=== PATIENT | female | born 1995 | race Caucasian/White ===

== ENCOUNTER 2018-01-09 16:06 | Emergency (ER) | payer SELFPAY ==
--- NOTE | 2018-01-09 18:15 | ED Physician Documentation ---
PD HPI BACK INJURY - Stated complaint Stated Complaint: back pain - History obtained from History obtained from: Patient - History of Present Illness Location: Upper Type of injury: Fall (she slipped on wet grass while pushing object and landed squarely on back, with pain thoracic back between shoulder blades and some in lower neck. [place] "wind knocked out" for few minutes. Pain with breathing. Had some numbness in feet and left hand briefly when it was hurting most. No numbness after few minutes.) Where injury occurred: Work Timing - onset: Today Timing - details: Abrupt onset, Still present Quality: Pain, Spasm, Sharp (in mid thoracic area) Worsened by: Moving, Other (deep breathing) Associated symptoms: Numbness (transiently in feet and hand). No: Fever, Weakness Similar symptoms before: Has not had sx before Recently seen: Not recently seen Review of Systems Constitutional: denies: Fever Nose: denies: Rhinorrhea / runny nose, Congestion Throat: denies: Sore throat Respiratory: reports: Cough (has had some cough and congestion for the past few days prior to this.) GI: denies: Abdominal Pain, Nausea, Vomiting, Diarrhea Skin: denies: Rash, Abrasion (s), Laceration (s) Neurologic: denies: Altered mental status, Headache, Head injury PD PAST MEDICAL HISTORY - Past Medical History Cardiovascular: None Respiratory: None Neuro: None Musculoskeletal: None - Present Medications Home Medications: Ambulatory Orders Medication Instructions Recorded Confirmed HYDROcod/ACETAM 5/325 [[place] 5/325] 1 tab PO Q6H PRN #15 tablet 01/09/18 Methocarbamol [Robaxin] 500 mg PO Q6H PRN #25 tablet 01/09/18 Naproxen [Naprosyn] 500 mg PO BID PRN #20 tablet 01/09/18 - Allergies Allergies/Adverse Reactions: Allergies Allergy/AdvReac Type Severity Reaction Status Date / Time No Known Drug Allergies Allergy Verified 01/09/18 16:40 PD ED PE NORMAL - Vitals Vital signs reviewed: Yes - General General: Alert and oriented X 3, Well developed/nourished - HEENT HEENT: Atraumatic - Neck Neck: Supple, no meningeal sign, No adenopathy, Other (tender lower cervical area without deformity. Guarding ROM. Mid thoracic back is also tender to percussion. No skin injury. ) - Cardiac Cardiac: RRR, No murmur - Respiratory Respiratory: Clear bilaterally - Abdomen Abdomen: Soft, Non tender - Derm Derm: Normal color, Warm and dry - Extremities Extremities: No deformity, No tenderness to palpate, Normal ROM s pain - Neuro Neuro: Alert and oriented X 3, No motor deficit, No sensory deficit, Normal speech Results - Vitals Vitals: Vital Signs - 24 hr 01/09/18 01/09/18 01/09/18 16:34 18:18 18:40 Temperature 36.3 C L 36.8 C Heart Rate 98 96 90 Respiratory 16 12 22 Rate Blood Pressure 115/59 L 124/73 O2 Saturation 100 100 01/09/18 20:24 Temperature 37.2 C Heart Rate 88 Respiratory 14 Rate Blood Pressure 103/64 O2 Saturation 100 Oxygen O2 Source Room air - Rads (name of study) cervical spine CT Radiology: Prelim report reviewed (no fractures), EMP read contemporaneously thoracic spine CT Radiology: Prelim report reviewed (no fractures nor acute process) PD MEDICAL DECISION MAKING - ED course Complexity details: reviewed results (cervical and thoracic spine CTs are normal. She is feeling better with meds. ), re-evaluated patient (improved with meds given in ED. ), considered differential, d/w patient Departure - Departure Disposition: 01 Home, Self Care Clinical Impression: Accidental fall Qualifiers: Encounter type: initial encounter Qualified Code(s): W19.XXXA - Unspecified fall, initial encounter Back contusion Qualifiers: Encounter type: initial encounter Laterality: unspecified laterality Qualified Code(s): S20.229A - Contusion of unspecified back wall of thorax, initial encounter Condition: Stable Record reviewed to determine appropriate education?: Yes Instructions: ED Contusion Back Prescriptions: HYDROcod/ACETAM 5/325 [[place] 5/325] 1 tab PO Q6H PRN #15 tablet PRN Reason: Pain Methocarbamol [Robaxin] 500 mg PO Q6H PRN #25 tablet PRN Reason: Spasms Naproxen [Naprosyn] 500 mg PO BID PRN #20 tablet PRN Reason: Pain Comments: There are no fractures on your spine on CT scan. Presume just a good contusion which will be sore for several days to week. Use some naproxen or ibuprofen twice daily. Add Robaxin muscle relaxant if needed and hydrocodone if needed for pain. Activity as able. Recheck if not better over the next week. Discharge Date/Time: 01/09/18 20:30
[2018-01-09] MEDS ORDERED: HYDROcod/ACETAM 5/325 MG TABLET PO STA (18:25)
[2018-01-09] MEDS ORDERED: KETOROLAC 60 MG/2 ML VIAL IM STA (18:25)
[2018-01-09] MEDS ORDERED: ALBUTEROL NEB 2.5 MG/3 ML INH STA (18:26)
--- NOTE | 2018-01-09 19:31 | CT Preliminary Report ---
Exam: CT CERVICAL SPINE W/O IMPRESSION: No cervical spine fracture or malalignment. [facility] SITE ID: [id number]
--- NOTE | 2018-01-09 19:31 | CT Report ---
EXAM: CT CERVICAL SPINE WITHOUT CONTRAST DATE: 01/09/2018 07:21 PM. HISTORY: Fell backward and lower neck/thoracic pain. COMPARISONS: None. TECHNIQUE: Thin-section axial images were acquired of the cervical spine without contrast. Post-proce ssing: Coronal and sagittal reformats. Other: None. In accordance with CT protocol optimization, one or more of the following dose reduction techniques w ere utilized for this exam: automated exposure control, adjustment of mA and/or KV based on patient s ize, or use of iterative reconstructive technique. FINDINGS: Alignment: There is reversal of the normal cervical lordosis. No vertebral body subluxations. Bones: No fracture or bone lesion. Interspace Levels/Facets: C1-C2: Unremarkable. C2-C3: Unremarkable. C3-C4: Unremarkable. C4-C5: Unremarkable. C5-C6: Unremarkable. C6-C7: Unremarkable. C7-T1: Unremarkable. Musculature: Normal. No fatty atrophy. Other: The paravertebral and prevertebral soft tissues are unremarkable. The lung apices are clear. IMPRESSION: No cervical spine fracture or malalignment. [facility] Referring Provider Line: [phone] SITE ID: [id number]
--- NOTE | 2018-01-09 19:33 | CT Report ---
EXAM: CT THORACIC SPINE WITHOUT CONTRAST EXAM DATE: 01/09/2018 07:21 PM. CLINICAL HISTORY: Fell backward and lower neck/thoracic pain. COMPARISONS: None. TECHNIQUE: Thin-section axial images were acquired of the thoracic spine from C7 to L1 without contra st. Post-processing: Coronal and sagittal reformats. Other: None. IV Contrast: None. In accordance with CT protocol optimization, one or more of the following dose reduction techniques w ere utilized for this exam: automated exposure control, adjustment of mA and/or KV based on patient s ize, or use of iterative reconstructive technique. FINDINGS: Alignment: No scoliosis or spondylolisthesis. Bones: No fracture or bone lesion. Disk Levels/Facets: C7-T1: Unremarkable. T1-T2: Unremarkable. T2-T3: Unremarkable. T3-T4: Unremarkable. T4-T5: Unremarkable. T5-T6: Unremarkable. T6-T7: Unremarkable. T7-T8: Unremarkable. T8-T9: Unremarkable. T9-T10: Unremarkable. T10-T11: Unremarkable. T11-T12: Unremarkable. T12-L1: Unremarkable. Musculature: Normal. No fatty atrophy. Other: The visualized lungs, mediastinum, and abdominal cavity are unremarkable. IMPRESSION: Normal thoracic spine CT. [facility] Referring Provider Line: [phone] SITE ID: [id number]
--- NOTE | 2018-01-09 19:33 | CT Preliminary Report ---
Exam: CT THORACIC SPINE W/O IMPRESSION: Normal thoracic spine CT. [facility] SITE ID: [id number]
[2018-01-09 20:26] VITALS: BP 103/64
== END 2018-01-09 20:30 | disposition home or self-care (01) ==
LOC: ED 16:06
DX: S20.229A Contusion of unspecified back wall of thorax, initial encounter (principal); M54.2 Cervicalgia; W01.0XXA Fall on same level from slipping, tripping and stumbling without subsequent striking against object, initial encounter; Y93.H9 Activity, other involving exterior property and land maintenance, building and construction
CPT/HCPCS: 72125; 72128; 96372; 99283; A9270